=== PATIENT | female | born 1995 | race Caucasian/White ===

== ENCOUNTER 2019-07-16 15:22 | Emergency (ER) | payer MEDICAID ==
[~2019-07-16] VITALS: Ht 165.1 cm; Wt 98.0 kg
[2019-07-16] MEDS ORDERED: LEVOTHYROXINE137 MCG PO (16:39)
[2019-07-16] MEDS ORDERED: ONDANSETRON ODT8 MG PO (20:42)
== END 2019-07-16 21:01 | disposition home or self-care (01) ==
LOC: ED 15:22
DX: K52.9 Noninfective gastroenteritis and colitis, unspecified (principal); E86.0 Dehydration; R55 Syncope and collapse; F17.200 Nicotine dependence, unspecified, uncomplicated; Z88.0 Allergy status to penicillin; Z91.040 Latex allergy status; Z79.899 Other long term (current) drug therapy
CPT/HCPCS: 80053; 81001; 83690; 83735; 84703; 85025; 96361; 96374; 99284-25; J2405; J7030

== ENCOUNTER 2023-03-15 18:01 | Emergency (ER) | payer OTHER ==
[~2023-03-15] VITALS: Ht 165.1 cm; Wt 94.8 kg
[~2023-03-15 18:01] MED LIST: LEVOTHYROXINE137 MCG PO; ONDANSETRON ODT8 MG PO
[2023-03-15 19:45] LABS: BILIRUBIN, URINE NEGATIVE (negative); BLOOD/HGB, URINE NEGATIVE (Negative); KETONE, URINE NEGATIVE (Negative); LEUK ESTERASE, URINE NEGATIVE (negative); NITRITE, URINE NEGATIVE (negative); PH, URINE 6.5 (5-7)
[2023-03-15 19:52] LABS: BASOPHILS 1.8 % (0-2); EOSINOPHILS 2.7 % (0-6); HEMATOCRIT 31.7 % (35.0-50.0); HEMOGLOBIN 10.7 g/dL (12.0-18.0); LYMPHOCYTES 24.7 % (24-44); MCH 32.9 (27-36); MCHC 33.7 g/dl (30-36); MCV 97.8 fl (81-99); MONOCYTES 9.1 % (0-12); NEUTROPHILS 61.7 % (39-80); PLATELET COUNT 234 K/uL (140-440); RBC 3.24 M/ul (4.3-5.7); RDW 15.1 (10.5-15.0)
[2023-03-15 20:05] LABS: ALBUMIN 4.1 g/dL (3.4-5.0); ALBUMIN/GLOBULIN RATIO 0.87 (1.1-2.4); ANION GAP 13.1 (7-21); BILIRUBIN, TOTAL 0.5 ng/dL (0.2-1.0); BUN/CREATININE RATIO 11.81 (6.0-28.6); CALCIUM 8.7 mg/dL (8.5-10.1); CREATININE, SERUM 1.1 mg/dL (0.55-1.02); POTASSIUM 4.1 mmol/L (3.5-5.1); PROTEIN, TOTAL 8.8 g/dL (6.4-8.2)
[2023-03-15] MEDS ORDERED: CARAFATE1 GM PO (20:11)
[2023-03-15] MEDS ORDERED: PROTONIX40 MG PO (20:11)
[2023-03-15 20:25] VITALS: BP 109/91
== END 2023-03-15 20:22 | disposition home or self-care (01) ==
LOC: ED 18:01
PROVIDERS: Family Medicine
DX: K29.70 Gastritis, unspecified, without bleeding (principal); F17.200 Nicotine dependence, unspecified, uncomplicated; Z88.0 Allergy status to penicillin; Z91.040 Latex allergy status; Z79.890 Hormone replacement therapy
CPT/HCPCS: 36415; 80053; 81003; 85025; 99284; A9270

== ENCOUNTER 2024-06-22 15:24 | Emergency (ER) | payer OTHER ==
[~2024-06-22] VITALS: Ht 165.1 cm; Wt 100.3 kg
[~2024-06-22 15:24] MED LIST changes: +CARAFATE1 GM PO; +PREDNISONE20 MG PO; +PROTONIX40 MG PO
[2024-06-22 15:54] LABS: BILIRUBIN, URINE NEGATIVE (negative); BLOOD/HGB, URINE NEGATIVE (Negative); KETONE, URINE NEGATIVE (Negative); LEUK ESTERASE, URINE SMALL (negative); NITRITE, URINE POSITIVE (negative)
[2024-06-22 15:59] LABS: EPITHELIAL CELLS, URINE SQUAMOUS 3+ /lpf (0-1+)
[2024-06-22 16:00] LABS: BACTERIA, URINE 4+ /hpf (negative); CASTS, URINE NONE SEEN \\lpf; COLLECTION TYPE, URINE CLEAN CATCH; CRYSTALS, URINE NONE SEEN (0-1+); RED BLOOD CELLS, URINE 0-1 /hpf (0-5); REFLEX CULTURE, URINE No (No); WHITE BLOOD CELLS, URINE 21-40 /HPF (0-5)
[2024-06-22] MEDS ORDERED: PYRIDIUM200 MG PO (16:15)
[2024-06-22] MEDS ORDERED: PHENAZOPYRIDINE HCL 100 MG TAB PO ONE (16:15)
[2024-06-22] MEDS ORDERED: CEFDINIR300 MG PO (16:15)
[2024-06-22] MEDS ORDERED: CEFDINIR 300 MG CAP PO ONE (16:15)
[2024-06-22 16:30] VITALS: BP 121/84
== END 2024-06-22 16:46 | disposition home or self-care (01) ==
LOC: ED 15:24
PROVIDERS: Emergency Medicine
DX: N39.0 Urinary tract infection, site not specified (principal); E03.9 Hypothyroidism, unspecified; F17.200 Nicotine dependence, unspecified, uncomplicated; Z88.0 Allergy status to penicillin; Z91.040 Latex allergy status; Z79.890 Hormone replacement therapy
CPT/HCPCS: 81001; 99283

== ENCOUNTER 2024-10-25 16:24 | Emergency (ER) | payer OTHER ==
[~2024-10-25] VITALS: Ht 165.1 cm; Wt 103.5 kg
[~2024-10-25 16:24] MED LIST changes: +CEFDINIR300 MG PO; +PYRIDIUM200 MG PO
[2024-10-25] MEDS ORDERED: BUSPIRONE HCL10 MG PO (17:01)
[2024-10-25 19:05] VITALS: BP 114/80
== END 2024-10-25 19:06 | disposition home or self-care (01) ==
LOC: ED 16:24
DX: S33.5XXA Sprain of ligaments of lumbar spine, initial encounter (principal); S90.02XA Contusion of left ankle, initial encounter; F17.200 Nicotine dependence, unspecified, uncomplicated; Z88.0 Allergy status to penicillin; Z91.040 Latex allergy status; Z79.899 Other long term (current) drug therapy; W01.0XXA Fall on same level from slipping, tripping and stumbling without subsequent striking against object, initial encounter
CPT/HCPCS: 72100; 73060; 73610; 73630; 84703; 99283

== ENCOUNTER 2025-03-24 17:11 | Emergency (ER) | payer OTHER ==
[~2025-03-24] VITALS: Ht 165.1 cm; Wt 95.0 kg
[~2025-03-24 17:11] MED LIST changes: +BUSPIRONE HCL10 MG PO
[2025-03-24] MEDS ORDERED: ESCITALOPRAM OXA5 MG PO (17:23)
[2025-03-24] MEDS ORDERED: DOXYCYCLINE HY100 MG PO (18:04)
[2025-03-24 18:24] VITALS: BP 110/78
== END 2025-03-24 18:20 | disposition home or self-care (01) ==
LOC: ED 17:11
DX: S60.465A Insect bite (nonvenomous) of left ring finger, initial encounter (principal); E03.9 Hypothyroidism, unspecified; F17.200 Nicotine dependence, unspecified, uncomplicated; Z88.0 Allergy status to penicillin; Z91.040 Latex allergy status; Z79.890 Hormone replacement therapy; Z79.899 Other long term (current) drug therapy; W57.XXXA Bitten or stung by nonvenomous insect and other nonvenomous arthropods, initial encounter
CPT/HCPCS: 99282